=== PATIENT | male | born 1985 | race Two or more races ===

== ENCOUNTER 2019-02-08 22:09 | Emergency (ER) | payer MEDICAID ==
[~2019-02-08] VITALS: Ht 175.3 cm; Wt 106.1 kg
[2019-02-08] MEDS ORDERED: ETOMIDATE 2 MG/ML VIAL ONE (22:28)
[2019-02-08] MEDS ORDERED: IV NS 0.9% 1,000 ML BAG IV ONE (22:30)
[2019-02-08] MEDS ORDERED: ETOMIDATE 2 MG/ML VIAL IV ONE (22:30)
--- NOTE | 2019-02-08 22:30 | NUR ---
[place] FROM [employer]ING [employer]. TO ER BED 8. AAOX4. NO RESP DISTRESS. C/O L ANKLE DEFORMITY AND PAIN. PT WAS PLAYING SOCCER AND GOT HIT ON THE ANKLE. POSITIVE FOR DISLOCATION AT ANKLE LEVEL. EXTREMETIES IS PLACED IN POSITION OF PERFUSION. NO DISCOLORATION AND PEDAL PULSE FELT. MD AT BEDSIDE FOR EVAL. ORDERS RECEIVED NOTED AND CARRIED OUT. PT SIGNED INFORMED CONSENT FOR SEDATION FOR L ANKLE CLOSE REDUCTION W/ ETOMIDATE.
--- NOTE | 2019-02-08 22:43 | NUR ---
MD AT BEDSIDE FOR CLOSE REDUCTION. RT AT BEDSIDE FOR PROCEDRUE WELL.
--- NOTE | 2019-02-08 22:50 | NUR ---
PT AWAKEN WITH VSS
[2019-02-08] MEDS ORDERED: KETOROLAC TROMETHAMINE INJ 30 MG/ML VIAL ONE (22:58)
[2019-02-08] MEDS ORDERED: KETOROLAC TROMETHAMINE INJ 30 MG/ML VIAL IV ONE (23:00)
[2019-02-08 23:49] VITALS: BP 130/75
--- NOTE | 2019-02-08 23:49 | NUR ---
Patient discharged to home in stable condition. Written and verbal after care instructions given. Patient verbalizes understanding of instruction.Pt ambulatory with an aide for crutches.
== END 2019-02-08 23:50 | disposition home or self-care (01) ==
LOC: ER 22:11
DX: S82.892A Other fracture of left lower leg, initial encounter for closed fracture (principal); W03.XXXA Other fall on same level due to collision with another person, initial encounter; Y93.66 Activity, soccer; Y92.322 Soccer field as the place of occurrence of the external cause; Y99.8 Other external cause status
CPT/HCPCS: 27788; 73600 ×2; 96374; 99152; 99285; J1885; J3490; J7030; G0500